=== PATIENT | male | born 1955 | race Caucasian/White ===

== ENCOUNTER 2017-01-04 09:39 | Emergency (ER) | payer BC ==
[~2017-01-04] VITALS: Ht 162.6 cm; Wt 98.7 kg
[2017-01-04 09:43] VITALS: BP 130/84
[2017-01-04] MEDS ORDERED: LIDOCAINE 1%, 20ML ONE (10:27)
[2017-01-04] MEDS ORDERED: LIDOCAINE 1%, 10ML INFIL ONE (10:30)
== END 2017-01-04 11:07 | disposition home or self-care (01) ==
LOC: ED 10:12
DX: T16.2XXA Foreign body in left ear, initial encounter (principal); I25.10 Atherosclerotic heart disease of native coronary artery without angina pectoris; I25.2 Old myocardial infarction; Y93.89 Activity, other specified; Y92.89 Other specified places as the place of occurrence of the external cause; Y99.8 Other external cause status
CPT/HCPCS: 69200; 99283